=== PATIENT | female | born 1990 | race Caucasian/White ===

== ENCOUNTER 2022-07-12 08:41 | Emergency (ER) | payer MEDICAID ==
[~2022-07-12] VITALS: Ht 152.4 cm; Wt 72.6 kg
[2022-07-12 08:49] VITALS: BP 130/74
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
[2022-07-12] MEDS ORDERED: ACETAMINOPHEN ES 500 MG TABLET PO ONE (09:00)
[2022-07-12] MEDS ORDERED: ACETAMINOPHEN ES 500 MG TABLET ONE (09:05)
--- NOTE | 2022-07-12 11:03 | NUR ---
Patient discharged to home in stable condition. Written and verbal after care instructions given. Patient verbalizes understanding of instruction.
== END 2022-07-12 11:02 | disposition home or self-care (01) ==
LOC: ER 08:53
DX: M79.632 Pain in left forearm (principal); R51.9 Headache, unspecified
CPT/HCPCS: 70486-TC; 73070-TC; 73090-TC; 73110